=== PATIENT | female | born 1950 | race African-American/Black ===

== ENCOUNTER 2021-05-01 10:17 | Emergency (ER) | payer MEDICARE ==
[2021-05-01] MEDS ORDERED: methylPREDNISolone Sod Succ/PF 125 MG/2 ML VIAL ONE (10:52)
== END 2021-05-01 10:57 | disposition home or self-care (01) ==
LOC: BURERS 10:17
DX: H66.91 Otitis media, unspecified, right ear (principal)
CPT/HCPCS: 96372; 99283; J2930

== ENCOUNTER 2022-01-26 13:05 | Emergency (ER) | payer OTHER, MEDICARE ==
[2022-01-26] MEDS ORDERED: Acetaminophen/Codeine 30-300mg Tablet ONE (13:39)
[2022-01-26] MEDS ORDERED: Boostrix 0.5 ML (Tdap) VIAL ONE (14:42)
== END 2022-01-26 14:45 | disposition home or self-care (01) ==
LOC: BURERS 13:05
DX: S16.1XXA Strain of muscle, fascia and tendon at neck level, initial encounter (principal); M25.512 Pain in left shoulder; M25.552 Pain in left hip; E78.00 Pure hypercholesterolemia, unspecified; I10 Essential (primary) hypertension; V89.2XXA Person injured in unspecified motor-vehicle accident, traffic, initial encounter
CPT/HCPCS: 71045; 72170; 90471; 90715

== ENCOUNTER 2022-10-17 12:57 | Emergency (ER) | payer MEDICARE | END 2022-10-17 14:45 | disposition home or self-care (01) | LOC: BURERS 12:57 | DX: J02.9 Acute pharyngitis, unspecified (principal); J01.90 Acute sinusitis, unspecified; E78.00 Pure hypercholesterolemia, unspecified; I10 Essential (primary) hypertension; Z79.899 Other long term (current) drug therapy | CPT/HCPCS: 87081; 87430; 87804; 99284 ==